=== PATIENT | male | born 1990 | race Caucasian/White ===

== ENCOUNTER 2021-08-28 00:20 | Emergency (ER) | payer SELFPAY ==
[~2021-08-28] VITALS: Ht 175.3 cm; Wt 73.0 kg
[2021-08-28] MEDS ORDERED: KEFLEX500 MG PO (00:48)
[2021-08-28 00:58] VITALS: BP 124/74
== END 2021-08-28 00:58 | disposition home or self-care (01) | DRG 914 ==
LOC: ED 00:20
DX: S61.240A Puncture wound with foreign body of right index finger without damage to nail, initial encounter (principal); W26.8XXA Contact with other sharp object(s), not elsewhere classified, initial encounter; Y93.89 Activity, other specified; Y92.009 Unspecified place in unspecified non-institutional (private) residence as the place of occurrence of the external cause